=== PATIENT | female | born 1945 | race Caucasian/White ===

== ENCOUNTER 2016-08-05 14:03 | Inpatient (IN) | payer MEDICARE ==
[~2016-08-05] VITALS: Ht 154.9 cm; Wt 61.0 kg
[2016-08-08] MEDS ORDERED: HYDR-3133 PO (09:30)
[2016-08-08] MEDS ORDERED: IMIT50TA PO (09:30)
[2016-08-08] MEDS ORDERED: RIZA10TA2 PO (09:30)
[2016-08-08] MEDS ORDERED: BUTA1CAP PO (09:30)
[2016-08-08] MEDS ORDERED: MELO-1 PO (09:30)
[2016-08-08] MEDS ORDERED: IMIT100T PO (09:30)
[2016-08-08] MEDS ORDERED: DIVA500T3 PO (09:30)
[2016-08-08] MEDS ORDERED: NEXI20CA PO (09:30)
[2016-08-08] MEDS ORDERED: BUPR1TAB70 PO (09:30)
[2016-08-24] MEDS: ROPIVACAINE PERI-ARTICULAR INJECTION. PERIART SCH ×10 (07:45→10:40)
[2016-08-24] MEDS ORDERED: INSULIN HUMAN REGULAR 1,000 UNITS/10 ML VIAL SQ PRN (07:45)
[2016-08-24] MEDS ORDERED: SODIUM CHLORID 0.9% 500 ML IV SCH (07:45)
[2016-08-24] MEDS ORDERED: VANCOMYCIN 1000 MG/NS 250 ML (for <70 kg) IV SCH ×2 (07:45)
[2016-08-24] MEDS ORDERED: DEXAMETHASONE SOD PHOS 20 MG/5 ML VIAL IV SCH (07:45)
[2016-08-24] MEDS: TRANEXAMIC ACID IV SCH ×2 (07:45→10:41)
[2016-08-24] MEDS ORDERED: LACTATED RINGER'S 1000 ML IV SCH (07:45)
[2016-08-24] MEDS ORDERED: ceFAZolin 2 GM PREMIX 50 ML IV SCH (07:45)
[2016-08-24] MEDS: SODIUM CHLORIDE 0.9% IV SCH ×2 (07:45→10:41)
[2016-08-24] MEDS: POVIDONE IODINE 7.5% SCRUB 118 ML BOTTLE TOP SCH (07:45)
[2016-08-24] MEDS ORDERED: METOPROLOL TARTRATE 25 MG TAB PO PRN (07:45)
[2016-08-24] MEDS ORDERED: GENTAMICIN SULFATE 80 MG/2 ML VIAL ONE (07:58)
[2016-08-24 08:10] VITALS: BP 125/70; PULSE 65; RESP 16; TEMP 97.7; O2SAT 100
[2016-08-24] MEDS ORDERED: MIDAZOLAM HCL 5 MG/5 ML VIAL ONE (08:57)
[2016-08-24] MEDS ORDERED: FAMOTIDINE 20 MG/2 ML VIAL ONE (08:57)
[2016-08-24] MEDS: SODIUM CHLOR 0.9% 1000 ML INJ 1,000 ML IV SCH ×2 (11:25→20:02)
--- NOTE | 2016-08-24 11:28 | PD.OP ---
cc: Sridhar Mary MD Operative Report Date of Surgery: Aug 24, 2016 Preoperative Diagnosis: Left knee severe osteoarthritis. Left femoral shaft malunion, chronic. Postoperative Diagnosis: Same Procedure: Left total knee arthroplasty Anesthesia: Adductor canal block and general Surgeon: Sridhar Mary Guard Immigration(s): JACOBO Garcia The surgical procedure was assisted by my Advanced Registered Nurse Practitioner. My MEDICAL RESEARCH SCIENTIST presence was necessary throughout this case for the manipulation and positioning of the surgical extremity. My MEDICAL RESEARCH SCIENTIST was assisting me throughout the duration of this procedure. The skill set of an Advance Registered Nurse Practitioner was medically necessary to complete this procedure. During the surgical case, the certified ophthalmic surgical assistant was working at the back table and the Advance Registered Nurse Practitioner was directly assisting me. Operation and Findings: IMPLANTS: DePuy Attune: Patella: size 32. Femur, posterior stabilized size 5 narrow. Tibia, rotating platform size for. Tibial insert, rotating platform, posterior stabilized size 5 mm thickness. ESTIMATED BLOOD LOSS: 150 cc TOURNIQUET TIME: 36 minutes at 250 mmHg pressure. JUSTIFICATION FOR PROCEDURE: The patient has end-stage osteoarthritis to the knee. There is an attached conservative measures pathway form in the chart that describes the nonoperative measures that were undertaken prior to consideration of surgical management. The patient understood the risks and benefits of surgical management. See my office notes for further details PROCEDURE: The patient was brought back to the operative theatre. Adequate anesthesia was obtained. The patient received intravenous vancomycin and Ancef. The lower extremity was prepped and draped in the usual sterile fashion.The leg was exsanguinated, the tourniquet was raised. A standard anterior incision was performed followed by medial parapatellar arthrotomy was performed. End-stage arthritis was identified. Osteotomy of the patella was performed. We drilled holes for the patella. We trialed the patella component. We placed an intramedullary guide into the distal femur. We ultimately resected 11 mm off of the distal femur in 7 degrees of valgus. We increased the valgus resection due to previous varus malunion of her femur. The remnants of the ACL and PCL were resected. Osteotomy of the proximal tibia was performed, resecting 4 mm off of the medial side. This was done with 3 degrees of posterior slope using an extramedullary guide. The distal end of the guide was placed in the mid aspect of the ankle. The femur was sized, and four chamfer cuts were completed in 3 of external rotation. We then cut the central box in the distal femur to replace the PCL. We resected the remnants of the menisci and removed osteophytes off of the femur and tibia. We then trialed the knee. We punched the tibia for the keel, and then used standard technique to cement in components. Excess cement was removed. We trialed the knee again and the final polyethylene thickness was chosen to provide extension to 0 degrees, and flexion of 140 degrees to gravity. The ligaments were appropriately balanced. Lateral release was not necessary to obtain excellent patellofemoral tracking. The tourniquet was released and adequate hemostasis was obtained. An intra- articular injection of a ropivacaine cocktail was injected. The posterior knee was inspected for excess cement, which was removed. The final polyethylene was put into position after thorough irrigation. We then closed deep fascia with a #2 Stratafix followed by skin with 2-0 Vicryl followed by geovanni. Postop plan is to weight-bear as tolerated. DVT prophylaxis will be performed with SCDamado, KENYON persaud, early mobilization, and Lovenox followed by aspirin. Sridhar Mary MD Aug 24, 2016 11:28
[2016-08-24] MEDS ORDERED: hydrOXYzine HCL 25 MG TAB PO PRN (11:30)
[2016-08-24] MEDS ORDERED: ENOX40P SQ (11:30)
[2016-08-24] MEDS ORDERED: MAGNESIUM HYDROXIDE SUSP 30 ML CUP PO PRN (11:30)
[2016-08-24] MEDS ORDERED: BISACODYL 10 MG SUPP PR PRN (11:30)
[2016-08-24] MEDS ORDERED: MORPHINE SULFATE 4 MG/ML INJ IV PUSH PRN (11:30)
[2016-08-24] MEDS ORDERED: ALUMINUM/MAGNESIUM/SIMETH 30 ML CUP PO PRN (11:30)
[2016-08-24] MEDS ORDERED: SODIUM CHLORIDE 0.9% FLUSH 5 ML FLUSH IVF PRN (11:30)
[2016-08-24] MEDS ORDERED: NORC5TAB PO (11:30)
[2016-08-24] MEDS ORDERED: diphenhydrAMINE HCL 50 MG/ML VIAL IV PRN (11:30)
[2016-08-24] MEDS ORDERED: ZOLPIDEM TARTRATE 5 MG TAB PO PRN (11:30)
[2016-08-24] MEDS ORDERED: NALOXONE HCL 0.4 MG/ML AMP IV PRN (11:30)
[2016-08-24] MEDS ORDERED: ACETAMINOPHEN/HYDROcodone 325 MG/5 MG TAB PO PRN (11:30)
[2016-08-24] MEDS ORDERED: ASPI325T PO (11:30)
[2016-08-24] MEDS ORDERED: SUMAtriptan SUCCINATE 50 MG TAB PO PRN (11:30)
[2016-08-24] MEDS ORDERED: Post-op Orders (for Pharmacy) MISC XX ONE (11:43)
[2016-08-24] MEDS ORDERED: ePHEDrine/NS 25 MG/5 ML SYR IV ONE (11:49)
[2016-08-24] MEDS ORDERED: ONDANSETRON HCL 4 MG/2 ML VIAL IV PUSH ONE (11:49)
[2016-08-24] MEDS ORDERED: PHENYLEPH/NS 1000 MCG/10 ML SYR IV ONE (11:49)
[2016-08-24] MEDS ORDERED: PROPOFOL 200 MG/20 ML AMP IV ONE (11:49)
[2016-08-24] MEDS ORDERED: LACTATED RINGER'S 1000 ML INJ 1,000 ML IV ONE (11:49)
[2016-08-24] MEDS ORDERED: fentaNYL CITRATE 250 MCG/5 ML AMP ONE (11:54)
[2016-08-24] MEDS ORDERED: MORPHINE SULFATE 4 MG/ML INJ ONE (11:55)
[2016-08-24] MEDS ORDERED: BUPIVACAINE LIPOSOME PF 1.3% 20 ML VIAL ONE (11:56)
[2016-08-24] MEDS ORDERED: *morphine SULFATE 8 MG/ML PERIprocedure ONLY ONE ×3 (12:00→13:48)
--- NOTE | 2016-08-24 13:05 | RADRPT ---
EXAM DATE/TIME: 08/24/2016 12:26 [facility] COMPARISON: CHEST PA & LAT, August 08, 2016, 11:51. INDICATIONS : Post left knee arthroplasty. MEDICAL HISTORY : None. SURGICAL HISTORY : None. ENCOUNTER: Initial ACUITY: 1 day PAIN SCORE: Non-responsive. LOCATION: Left knee FINDINGS: The patient is post left knee arthroplasty. Orthopedic hardware is in excellent position. There are s kin geovanni in place. CONCLUSION: Uncomplicated left knee arthroplasty. Gaurav Awan MD on August 24, 2016 at 13:03 Board Certified Radiologist. This report was verified electronically.
[2016-08-24] MEDS ORDERED: SODIUM CHLORIDE 0.9% IV SCH (13:40)
[2016-08-24] MEDS ORDERED: TRANEXAMIC ACID IV SCH (13:40)
[2016-08-24] MEDS ORDERED: *ONDANSETRON 4 MG VIAL PERIprocedural Use ONLY ONE (13:48)
[2016-08-24 17:42] VITALS: BP 119/73; PULSE 75; RESP 14; TEMP 95.4; O2SAT 97
[2016-08-24 19:34] VITALS: BP 134/71; PULSE 69; RESP 16; TEMP 97.2; O2SAT 98
[2016-08-24] MEDS: SODIUM CHLORIDE 0.9% FLUSH 5 ML FLUSH IVF SCH (19:40)
[2016-08-24] MEDS: ONDANSETRON HCL 4 MG/2 ML VIAL IVP PRN (19:41)
[2016-08-24] MEDS: SUMAtriptan SUCCINATE 50 MG TAB PO PRN (19:43)
--- NOTE | 2016-08-24 19:58 | PD.CONS ---
HPI Service [facility] Consult Requested By Dr Mary Primary Care Physician Pieter Aragon M.D. Diagnoses: History of Present Illness This is a 70-year-old female with past medical history for migraine headaches, cellulitis of the right lower extremity due to chronic lymphedema, and also arthritis who presents to [facility] for elective left total knee arthroplasty. 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 The patient states that she has seen in consultation Dr. Mary and after trying multiple conservative interventions which have failed, it was decided to do an elective surgery. The patient denies chest pain, shows of breath, fevers, chills, dysuria, abdominal pain, diarrhea. The patient only admits to having a migraine headache which has been better after she got some Imitrex. Review of Systems Except as stated in HPI: all other systems reviewed are Neg Past Family Social History Allergies: Coded Allergies: Sulfa (Verified Allergy, Mild, Hives, 08/24/16) Uncoded Allergies: FLU SHOT (Allergy, Unknown, Hives, 05/31/03) Past Medical History 1. Migraine headaches. 2. Cellulitis of the right lower extremity 3. 3. Chronic lymphedema of the right lower extremity Past Surgical History 1. Surgery of the right meniscus. 2. Total abdominal hysterectomy with bilateral salpingo-oophorectomy. Reported Medications 1. Fioricet 503 [id number] milligrams by mouth every 4 hours when necessary headache. 2. Lovenox 40 mg subcutaneous daily. 3. Depakote 500 mg by mouth twice a day for migraine headaches. 4. Hydroxyzine 925 mg by mouth 3 times a day as needed for itching. 5. Aspirin 325 mg by mouth daily. 6. Meloxicam 50 mg by mouth daily. 7. Murray 1-2 tablets by mouth every 4 hours when necessary for pain. 8. Nexium 20 mg by mouth daily. 9. Imitrex 100 mg once as needed for migraine headache. Active Ordered Medications Current Medications Medications (Trade) Dose Ordered Sig/Nallely Route Start Time Stop Time Status Last Admin (Betadine 7.5% Scrub) 1 applic ONCE TOP 08/24/16 07:45 08/27/16 07:44 (Wellbutrin Sr 12 Hr) 100 mg Q12HR PO 08/24/16 21:00 08/25/16 08:30 (Depakote Er) 500 mg BID PO 08/24/16 21:00 08/25/16 08:30 (Atarax) 25 mg TID PRN PO 08/24/16 11:30 Pantoprazole Sodium 20 mg 20 mg DAILY PO 08/25/16 09:00 08/25/16 08:30 (NS 1000 ml Inj) 1,000 ml @ 100 mls/hr Q10H IV 08/24/16 11:25 08/24/16 20:02 (NS Flush) 2 ml UNSCH PRN IVF 08/24/16 11:30 (NS Flush) 2 ml BID IVF 08/24/16 21:00 08/25/16 08:31 (Lovenox Inj) 40 mg Q24H SQ 08/25/16 11:00 09/03/16 11:01 08/25/16 11:25 ([place] 5-325 Mg) 1 tab Q4H PRN PO 08/24/16 11:30 08/25/16 05:18 ([place] 5-325 Mg) 2 tab Q4H PRN PO 08/24/16 11:30 08/25/16 12:44 (Theragran M Tab) 1 tab BID PO 08/25/16 21:00 10/24/16 20:59 (Zofran Inj) 4 mg Q6H PRN IVP 08/24/16 11:30 08/25/16 08:35 (Colace) 100 mg BID PO 08/25/16 21:00 (Mag-Al Plus Susp Liq) 30 ml Q6H PRN PO 08/24/16 11:30 (Ambien) 5 mg HS PRN PO 08/24/16 11:30 (Dulcolax Supp) 10 mg DAILY PRN [place] 08/24/16 11:30 (Narcan Inj) 0.4 mg UNSCH PRN IV 08/24/16 11:30 (Benadryl Inj) 25 mg Q6H PRN IV 08/24/16 11:30 (Morphine Inj) 2 mg Q3H PRN IV PUSH 08/24/16 11:30 (Milk Of Magnesia Liq) 30 ml BID PO 08/25/16 10:00 08/25/16 11:25 (Senokot) 17.2 mg HS PO 08/25/16 21:00 Family History Mother from breast cancer and pancreatic. Social History Patient denies smoking currently. She is a former smoker quit in her 30s. Admits to rare alcohol drinking. The patient is initially and then had a sentimental partner for several years which is now. The patient has 1 daughter and 2 sons. Physical Exam Vital Signs Vital Signs Date Time Temp Pulse Resp B/P Pulse Ox O2 Delivery O2 Flow Rate FiO2 08/24/16 19:34 97.2 69 16 134/71 98 08/24/16 17:42 95.4 75 14 119/73 97 08/24/16 15:00 97.5 83 15 108/64 99 Nasal Cannula 2 08/24/16 13:30 97.9 81 16 128/73 99 Nasal Cannula 2 08/24/16 13:15 78 20 129/79 98 Nasal Cannula 2 08/24/16 13:00 78 20 129/79 98 Nasal Cannula 2 08/24/16 12:45 81 20 136/73 98 Nasal Cannula 2 08/24/16 12:30 84 20 135/79 98 Nasal Cannula 2 08/24/16 12:15 86 20 139/80 97 Nasal Cannula 2 08/24/16 12:00 104 20 143/83 98 Nasal Cannula 2 08/24/16 11:50 98.7 93 20 130/74 98 Nasal Cannula 2 08/24/16 08:10 97.7 65 16 125/70 100 Physical Exam GENERAL: This is a well-nourished, well-developed patient, in no apparent distress. SKIN: No rashes, ecchymoses or lesions. Cool and dry. HEAD: Atraumatic. Normocephalic. No temporal or scalp tenderness. EYES: Pupils equal round and reactive. Extraocular motions intact. No scleral icterus. No injection or drainage. ENT: Nose without bleeding, purulent drainage or septal hematoma. Throat without erythema, tonsillar hypertrophy or exudate. Uvula midline. Airway patent. NECK: Trachea midline. No JVD or lymphadenopathy. Supple, nontender, no meningeal signs. CARDIOVASCULAR: Regular rate and rhythm without murmurs, gallops, or rubs. RESPIRATORY: Clear to auscultation. Breath sounds equal bilaterally. No wheezes , rales, or rhonchi. GASTROINTESTINAL: Abdomen soft, non-tender, nondistended. No hepato-splenomegaly , or palpable masses. No guarding. MUSCULOSKELETAL: Extremities without clubbing, cyanosis, or edema. There is tenderness to palpation of the left knee area range of motion is limited by pain. No calf tenderness. Negative Homans sign bilaterally. NEUROLOGICAL: Awake and alert. Cranial nerves II through XII intact. Motor and sensory grossly within normal limits. Five out of 5 muscle strength in all muscle groups. Normal speech. Laboratory Laboratory Tests Test 08/24/16 08/24/16 08/24/16 08:26 09:42 09:44 Blood Type A POSITIVE A POSITIVE Antibody Screen POSITIVE Antigen Identification E Antigen - NEGATIVE Crossmatch Leukocyte-Reduced Red Blood Cells Blood Bank Comment Antibody Identification Anti-E Imaging Last Impressions Knee X-Ray 08/24/16 1125 Signed Impressions: Service Date/Time: Wednesday, August 24, 2016 12:26 - CONCLUSION: Uncomplicated left knee arthroplasty. Gaurav Awan MD Assessment and Plan Problem List: (1) Primary localized osteoarthrosis, lower leg ICD Code: M17.10 Status: Acute Plan: Status post knee replacement. Management as per orthopedic surgery. Hold aspirin (2) Status post total knee replacement, left ICD Code: Z96.652 Status: Acute Plan: As above. (3) Migraine headache ICD Code: G43.909 Status: Acute Plan: Patient is a minor headache for which he has taken 1 dose of Imitrex. The patient may take a second dose of Imitrex after 2 hours of initial dose is headache is persistent. This was discussed with RN. Continue Depakote, bupropion, Imitrex. Assessment and Plan DVT prophylaxis: SCDs, KENYON stockings, chemoprophylaxis as per orthopedic surgery. Code Status Full code Discussed Condition With Patient, RN Problem Qualifiers (1) Primary localized osteoarthrosis, lower leg: Qualified Code: M17.12 - Primary localized osteoarthrosis, lower leg, left (2) Migraine headache: Sergio Mooney MD Aug 24, 2016 19:58
[2016-08-24] MEDS: buPROPion HCL 100 MG SUSTAINED RELEASE TAB PO SCH (20:03)
[2016-08-24] MEDS: DIVALPROEX SODIUM E.R. 500 MG TAB PO SCH (20:03)
--- NOTE | 2016-08-24 21:06 | HHI.DCPOC ---
Discharge Care Plan Diagnosis: (1) Primary localized osteoarthrosis, lower leg (2) Status post total knee replacement, left Your Health Problems Are: Difficulty with ADL Goals to Promote Your Health * To prevent worsening of your condition and complications * To maintain your health at the optimal level Directions to Meet Your Goals Take your medications as prescribed Follow your dietary instruction Follow activity as directed Keep your appointments as scheduled Take your immunizations and boosters as scheduled If your symptoms worsen call your PCP, if no PCP go to Urgent Care Center or Emergency Room Smoking is Dangerous to Your Health. Avoid second hand smoke Call the 24-hour hour crisis hotline for domestic abuse at Gaurav Willard Aug 24, 2016 21:06
--- NOTE | 2016-08-24 21:07 | HHI.FF ---
Face to Face Verification Diagnosis: (1) Primary localized osteoarthrosis, lower leg (2) Status post total knee replacement, left Physical Therapy Gait training, Transfer training, bed to chair Knee: Total knee Left LE Weight Bearing: WB as tolerated Left LE Range of Motion: Active ROM Nursing Nursing: Bette teaching, Dressing changes Dressing Changes: Daily dressing change I have seen patient Kristie Xie on 08/24/16. My clinical findings support the need for the requested home health care services because: Limited ability to care for self High risk of falls I certify that my clinical findings support that this patient is homebound because: Post-op weakness Unsteady gait/balance Gaurav Willard Aug 24, 2016 21:07
[2016-08-24] MEDS ORDERED: COMMODE 3-IN-11 MIS (21:10)
[2016-08-24] MEDS ORDERED: WALKER WHEELS/F1 MIS (21:10)
[2016-08-24] MEDS ORDERED: CPMMACHINE (21:10)
[2016-08-24 23:20] VITALS: BP 105/55; PULSE 68; RESP 16; TEMP 96.5; O2SAT 96
[2016-08-25 04:00] VITALS: BP 118/63; PULSE 74; RESP 16; TEMP 96.5; O2SAT 97
[2016-08-25 06:59] LABS: HEMATOCRIT 30.2 % (35.0-46.0); MEAN CELL VOLUME 92.4 FL (80.0-100.0); MEAN CORPUSCULAR HEMOGLOBIN 31.3 PG (27.0-34.0); MEAN CORPUSCULAR HGB CONC 33.9 % (32.0-36.0); PLATELET COUNT 173 TH/MM3 (150-450); RED BLOOD COUNT 3.27 MIL/MM3 (4.00-5.30); RED CELL DISTRIBUTION WIDTH 13.8 % (11.6-17.2); REVIEW FLAG FINAL; WHITE BLOOD COUNT 8.2 TH/MM3 (4.0-11.0)
[2016-08-25] MEDS: SODIUM CHLOR 0.9% 1000 ML INJ 1,000 ML IV SCH ×2 (07:25→17:25)
[2016-08-25] MEDS ORDERED: DEXAMETHASONE SOD PHOS 20 MG/5 ML VIAL IV ONE (07:45)
[2016-08-25] MEDS: POVIDONE IODINE 7.5% SCRUB 118 ML BOTTLE TOP SCH (07:45)
[2016-08-25 08:00] VITALS: BP 113/62; PULSE 80; RESP 18; TEMP 96.8; O2SAT 99
[2016-08-25] MEDS: PANTOPRAZOLE SOD 20 MG DELAYED RELEASE TAB PO SCH (08:30)
[2016-08-25] MEDS: DIVALPROEX SODIUM E.R. 500 MG TAB PO SCH ×2 (08:30→20:42)
[2016-08-25] MEDS: ACETAMINOPHEN/HYDROcodone 325 MG/5 MG TAB PO PRN ×4 (08:30→20:47)
[2016-08-25] MEDS: buPROPion HCL 100 MG SUSTAINED RELEASE TAB PO SCH ×2 (08:30→20:42)
[2016-08-25] MEDS: SODIUM CHLORIDE 0.9% FLUSH 5 ML FLUSH IVF SCH ×2 (08:31→20:43)
[2016-08-25] MEDS: ONDANSETRON HCL 4 MG/2 ML VIAL IVP PRN (08:35)
[2016-08-25] MEDS: ENOXAPARIN SODIUM 40 MG/0.4 ML SYRINGE SQ SCH (11:25)
[2016-08-25] MEDS: MAGNESIUM HYDROXIDE SUSP 30 ML CUP PO SCH ×2 (11:25→20:42)
[2016-08-25 11:40] VITALS: BP 141/72; PULSE 74; RESP 18; TEMP 97.1; O2SAT 99
--- NOTE | 2016-08-25 12:03 | RADRPT ---
EXAM DATE/TIME: 08/25/2016 10:54 [facility] COMPARISON: No previous studies available for comparison. INDICATIONS : Left calf/knee pain and swelling. MEDICAL HISTORY : Gastroesophageal reflux disease. Migraines. Hiatal hernia. Arthritis. Cervical cancer. Lymph neal ma, bilateral lower extremities. SURGICAL HISTORY : Hysterectomy. Bilateral miniscus repair. Left knee surgery. ENCOUNTER: Subsequent ACUITY: 1 day PAIN SCORE: 5/10 LOCATION: Left leg. TECHNIQUE: Venous ultrasound of the leg was performed from the inguinal ligament to the proximal calf. Real-jeanmarie e, color Doppler and spectral tracing, compression and augmentation techniques were used. FINDINGS: There is normal compressibility of the deep venous system from the inguinal region to the proximal ca lf. No echogenic clot is seen in the lumen of the common femoral, femoral, popliteal, and posterior tibial veins. There is a normal response of the venous system to proximal and distal augmentation an d respiration. CONCLUSION: Normal examination. Peyman Dick MD on August 25, 2016 at 12:01 Board Certified Radiologist. This report was verified electronically.
--- NOTE | 2016-08-25 13:11 | PD.ORT.PN ---
Subjective Post Op Day #: 1 Subjective Remarks Patient is OOB in chair. Moderate pain to the left calf. US ordered and results were negative. Patient requesting another night in the hospital before being discharged. Objective Vitals Vital Signs Date Time Temp Pulse Resp B/P Pulse Ox O2 Delivery O2 Flow Rate FiO2 08/25/16 11:40 97.1 74 18 141/72 99 08/25/16 08:00 96.8 80 18 113/62 99 08/25/16 06:01 18 08/25/16 04:00 96.5 74 16 118/63 97 08/24/16 23:20 96.5 68 16 105/55 96 08/24/16 21:01 18 08/24/16 19:34 97.2 69 16 134/71 98 08/24/16 17:42 95.4 75 14 119/73 97 08/24/16 15:00 97.5 83 15 108/64 99 Nasal Cannula 2 08/24/16 13:30 97.9 81 16 128/73 99 Nasal Cannula 2 08/24/16 13:15 78 20 129/79 98 Nasal Cannula 2 08/24/16 13:00 78 20 129/79 98 Nasal Cannula 2 I/O 08/24/16 08/24/16 08/24/16 08/25/16 08/25/16 08/25/16 07:00 15:00 23:00 07:00 15:00 23:00 Intake Total 1750 ml 600 ml 1230 ml Output Total 500 ml 100 ml 225 ml Balance 1250 ml 500 ml 1005 ml Intake Oral 150 ml 480 ml IV Total 600 ml 750 ml Other 1600 ml Output Urine Total 400 ml 100 ml 225 ml Estimated Blood Loss 100 ml # Bowel Movements 0 Result Diagram: 08/25/16 0617 Imaging Last 24 hours Impressions Lower Extremity Ultrasound 08/25/16 0000 Signed Impressions: Service Date/Time: August 10:54 - CONCLUSION: Normal examination. Peyman Dick MD Procedures Left TKA Objective Remarks The patient's dressings were changed today with scant serosanguineous drainage. Incisions are well approximated with surgical clips intact. No redness or s/ s of infection. EHL/TA/G intact. 2+ pedal pulse. + calf swelling or tenderness (US negative for DVT). Mild to moderate lower extremity swelling. + SILT. Assessment & Plan Ortho Post Op Day #: 1 Problem List: Assessment and Plan POD #1: Left TKA 1. WBAT LLE 2. Lovenox for DVT prophylaxis 3. Ice to the left knee PRN 4. Anticipatory discharge home with home health on Monday. Gaurav Willard Aug 25, 2016 13:11
--- NOTE | 2016-08-25 15:21 | HHI.PR ---
Subjective Remarks c/o left calf pain and pain behind knee deies fevers/chills denies cp/sob stable vital signs states had episode of dizziness during class Objective Vitals Vital Signs Date Time Temp Pulse Resp B/P Pulse Ox O2 Delivery O2 Flow Rate FiO2 08/25/16 11:40 97.1 74 18 141/72 99 08/25/16 08:00 96.8 80 18 113/62 99 08/25/16 06:01 18 08/25/16 04:00 96.5 74 16 118/63 97 08/24/16 23:20 96.5 68 16 105/55 96 08/24/16 21:01 18 08/24/16 19:34 97.2 69 16 134/71 98 08/24/16 17:42 95.4 75 14 119/73 97 I/O 08/24/16 08/24/16 08/24/16 08/25/16 08/25/16 08/25/16 07:00 15:00 23:00 07:00 15:00 23:00 Intake Total 1750 ml 600 ml 1230 ml Output Total 500 ml 100 ml 225 ml Balance 1250 ml 500 ml 1005 ml Intake Oral 150 ml 480 ml IV Total 600 ml 750 ml Other 1600 ml Output Urine Total 400 ml 100 ml 225 ml Estimated Blood Loss 100 ml # Bowel Movements 0 Result Diagram: 08/25/16 0617 Imaging Last Impressions Lower Extremity Ultrasound 08/25/16 0000 Signed Impressions: Service Date/Time: August 10:54 - CONCLUSION: Normal examination. Peyman Dick MD Knee X-Ray 08/24/16 1125 Signed Impressions: Service Date/Time: Wednesday, August 24, 2016 12:26 - CONCLUSION: Uncomplicated left knee arthroplasty. Gaurav Awan MD Objective Remarks GENERAL: This is a well-nourished, well-developed patient, in no apparent distress. SKIN: No rashes, ecchymoses or lesions. Cool and dry. HEAD: Atraumatic. Normocephalic. No temporal or scalp tenderness. EYES: Pupils equal round and reactive. Extraocular motions intact. No scleral icterus. No injection or drainage. ENT: Nose without bleeding, purulent drainage or septal hematoma. Throat without erythema, tonsillar hypertrophy or exudate. Uvula midline. Airway patent. NECK: Trachea midline. No JVD or lymphadenopathy. Supple, nontender, no meningeal signs. CARDIOVASCULAR: Regular rate and rhythm without murmurs, gallops, or rubs. RESPIRATORY: Clear to auscultation. Breath sounds equal bilaterally. No wheezes , rales, or rhonchi. GASTROINTESTINAL: Abdomen soft, non-tender, nondistended. No hepato-splenomegaly , or palpable masses. No guarding. MUSCULOSKELETAL: Extremities without clubbing, cyanosis, or edema. There is tenderness to palpation of the left knee area range of motion is limited by pain .(+) left cald tenderness. NEUROLOGICAL: Awake and alert. Cranial nerves II through XII intact. Motor and sensory grossly within normal limits. Five out of 5 muscle strength in all muscle groups. Normal speech. Procedures sp Left total knee arthroplasty Medications and IVs Current Medications Medications (Trade) Dose Ordered Sig/Nallely Route Start Time Stop Time Status Last Admin (Betadine 7.5% Scrub) 1 applic ONCE TOP 08/24/16 07:45 08/27/16 07:44 (Wellbutrin Sr 12 Hr) 100 mg Q12HR PO 08/24/16 21:00 08/25/16 08:30 (Depakote Er) 500 mg BID PO 08/24/16 21:00 08/25/16 08:30 (Atarax) 25 mg TID PRN PO 08/24/16 11:30 Pantoprazole Sodium 20 mg 20 mg DAILY PO 08/25/16 09:00 08/25/16 08:30 (NS 1000 ml Inj) 1,000 ml @ 100 mls/hr Q10H IV 08/24/16 11:25 08/24/16 20:02 (NS Flush) 2 ml UNSCH PRN IVF 08/24/16 11:30 (NS Flush) 2 ml BID IVF 08/24/16 21:00 08/25/16 08:31 (Lovenox Inj) 40 mg Q24H SQ 08/25/16 11:00 09/03/16 11:01 08/25/16 11:25 ([place] 5-325 Mg) 1 tab Q4H PRN PO 08/24/16 11:30 08/25/16 05:18 ([place] 5-325 Mg) 2 tab Q4H PRN PO 08/24/16 11:30 08/25/16 12:44 (Theragran M Tab) 1 tab BID PO 08/25/16 21:00 10/24/16 20:59 (Zofran Inj) 4 mg Q6H PRN IVP 08/24/16 11:30 08/25/16 08:35 (Colace) 100 mg BID PO 08/25/16 21:00 (Mag-Al Plus Susp Liq) 30 ml Q6H PRN PO 08/24/16 11:30 (Ambien) 5 mg HS PRN PO 08/24/16 11:30 (Dulcolax Supp) 10 mg DAILY PRN [place] 08/24/16 11:30 (Narcan Inj) 0.4 mg UNSCH PRN IV 08/24/16 11:30 (Benadryl Inj) 25 mg Q6H PRN IV 08/24/16 11:30 (Morphine Inj) 2 mg Q3H PRN IV PUSH 08/24/16 11:30 (Milk Of Magnesia Liq) 30 ml BID PO 08/25/16 10:00 08/25/16 11:25 (Senokot) 17.2 mg HS PO 08/25/16 21:00 Urinary Catheter: No Vascular Central Line Catheter: No A/P Problem List: (1) Primary localized osteoarthrosis, lower leg ICD Code: M17.10 Status: Acute Plan: Status post knee replacement. Management as per orthopedic surgery. Continue Hold aspirin Pain control as per orthopedic surgery Patient on Senna and colace for bowel regime. (2) Status post total knee replacement, left ICD Code: Z96.652 Status: Acute Plan: As above. (3) Migraine headache ICD Code: G43.909 Status: Acute Plan: Patient is a minor headache for which he has taken 1 dose of Imitrex. The patient may take a second dose of Imitrex after 2 hours of initial dose is headache is persistent. This was discussed with RN. Continue Depakote, bupropion, Imitrex. Stable - mo nigraine currently (4) Pain of left calf ICD Code: M79.662 Status: Acute Plan: Doppler us negative for DVT. Likely postsurgical due to inflammation. Problem Qualifiers (1) Primary localized osteoarthrosis, lower leg: Qualified Code: M17.12 - Primary localized osteoarthrosis, lower leg, left (2) Migraine headache: Sergio Mooney MD Aug 25, 2016 15:21
[2016-08-25 15:50] VITALS: BP 107/75; PULSE 83; RESP 23; TEMP 98.9; O2SAT 98
[2016-08-25 20:00] VITALS: BP 125/66; PULSE 77; RESP 23; TEMP 97.5; O2SAT 99
[2016-08-25] MEDS: MULTIVITAMINS/MINERALS THERAPEUTIC TAB PO SCH (20:42)
[2016-08-25] MEDS: DOCUSATE SODIUM 100 MG CAP PO SCH (20:42)
[2016-08-25] MEDS ORDERED: SENNOSIDES 8.6 MG TAB PO SCH (21:00)
[2016-08-26 00:35] VITALS: BP 109/62; PULSE 69; RESP 16; TEMP 97.2; O2SAT 97
[2016-08-26] MEDS: ACETAMINOPHEN/HYDROcodone 325 MG/5 MG TAB PO PRN ×3 (00:46→12:51)
[2016-08-26] MEDS: SODIUM CHLOR 0.9% 1000 ML INJ 1,000 ML IV SCH ×2 (03:25→13:25)
[2016-08-26 07:02] LABS: HEMATOCRIT 28.6 % (35.0-46.0); MEAN CELL VOLUME 91.9 FL (80.0-100.0); MEAN CORPUSCULAR HEMOGLOBIN 31.5 PG (27.0-34.0); MEAN CORPUSCULAR HGB CONC 34.2 % (32.0-36.0); PLATELET COUNT 169 TH/MM3 (150-450); RED BLOOD COUNT 3.11 MIL/MM3 (4.00-5.30); RED CELL DISTRIBUTION WIDTH 13.6 % (11.6-17.2); REVIEW FLAG FINAL; WHITE BLOOD COUNT 8.3 TH/MM3 (4.0-11.0)
[2016-08-26] MEDS: POVIDONE IODINE 7.5% SCRUB 118 ML BOTTLE TOP SCH (07:12)
[2016-08-26 07:20] LABS: BICARBONATE 30.7 MEQ/L (21.0-32.0); POTASSIUM 3.7 MEQ/L (3.5-5.1)
[2016-08-26] MEDS: MULTIVITAMINS/MINERALS THERAPEUTIC TAB PO SCH (07:42)
[2016-08-26] MEDS: buPROPion HCL 100 MG SUSTAINED RELEASE TAB PO SCH (07:42)
[2016-08-26] MEDS: SUMAtriptan SUCCINATE 50 MG TAB PO PRN (07:42)
[2016-08-26] MEDS: DIVALPROEX SODIUM E.R. 500 MG TAB PO SCH (07:42)
[2016-08-26] MEDS: MAGNESIUM HYDROXIDE SUSP 30 ML CUP PO SCH (07:42)
[2016-08-26] MEDS: DOCUSATE SODIUM 100 MG CAP PO SCH (07:42)
[2016-08-26] MEDS: PANTOPRAZOLE SOD 20 MG DELAYED RELEASE TAB PO SCH (07:42)
[2016-08-26 07:52] VITALS: BP 100/59; PULSE 76; RESP 18; TEMP 96.6; O2SAT 96
[2016-08-26] MEDS: SODIUM CHLORIDE 0.9% FLUSH 5 ML FLUSH IVF SCH (07:52)
[2016-08-26] MEDS: ENOXAPARIN SODIUM 40 MG/0.4 ML SYRINGE SQ SCH (10:05)
[2016-08-26 10:07] VITALS: O2SAT 95
[2016-08-26] MEDS: ONDANSETRON HCL 4 MG/2 ML VIAL IVP PRN (11:28)
[2016-08-26 13:05] VITALS: BP 104/62; PULSE 83; RESP 18; TEMP 97.1; O2SAT 100
[2016-08-26] MEDS ORDERED: SODIUM CHLORID 0.9% 500 ML INJ 500 ML IV ONE (13:45)
--- NOTE | 2016-08-26 13:54 | HHI.PR ---
Subjective Remarks She states that she had an episode of dizziness and low blood pressure with systolic blood pressure in the 70s when she stood up earlier today. denies cp/sob denies fevers/chills denies cough Objective Vitals Vital Signs Date Time Temp Pulse Resp B/P Pulse Ox O2 Delivery O2 Flow Rate FiO2 08/26/16 13:05 97.1 83 18 104/62 100 08/26/16 10:07 95 21 08/26/16 07:52 96.6 76 18 100/59 96 08/26/16 00:35 97.2 69 16 109/62 97 08/25/16 20:00 97.5 77 23 125/66 99 08/25/16 15:50 98.9 83 23 107/75 98 I/O 08/25/16 08/25/16 08/25/16 08/26/16 08/26/16 08/26/16 07:00 15:00 23:00 07:00 15:00 23:00 Intake Total 1230 ml 1080 ml 240 ml Output Total 225 ml Balance 1005 ml 1080 ml 240 ml Intake Oral 480 ml 1080 ml 240 ml IV Total 750 ml Output Urine Total 225 ml # Voids 5 1 # Bowel Movements 0 0 0 Result Diagram: 08/26/16 0549 08/26/16 0549 Imaging Last Impressions Lower Extremity Ultrasound 08/25/16 0000 Signed Impressions: Service Date/Time: August 10:54 - CONCLUSION: Normal examination. Peyman Dick MD Knee X-Ray 08/24/16 1125 Signed Impressions: Service Date/Time: Wednesday, August 24, 2016 12:26 - CONCLUSION: Uncomplicated left knee arthroplasty. Gaurav Awan MD Objective Remarks GENERAL: This is a well-nourished, well-developed patient, in no apparent distress. SKIN: No rashes, ecchymoses or lesions. Cool and dry. HEAD: Atraumatic. Normocephalic. No temporal or scalp tenderness. EYES: Pupils equal round and reactive. Extraocular motions intact. No scleral icterus. No injection or drainage. ENT: Nose without bleeding, purulent drainage or septal hematoma. Throat without erythema, tonsillar hypertrophy or exudate. Uvula midline. Airway patent. NECK: Trachea midline. No JVD or lymphadenopathy. Supple, nontender, no meningeal signs. CARDIOVASCULAR: Regular rate and rhythm without murmurs, gallops, or rubs. RESPIRATORY: Clear to auscultation. Breath sounds equal bilaterally. No wheezes , rales, or rhonchi. GASTROINTESTINAL: Abdomen soft, non-tender, nondistended. No hepato-splenomegaly , or palpable masses. No guarding. MUSCULOSKELETAL: Extremities without clubbing, cyanosis, or edema. There is tenderness to palpation of the left knee area range of motion is limited by pain .(+) left cald tenderness. NEUROLOGICAL: Awake and alert. Cranial nerves II through XII intact. Motor and sensory grossly within normal limits. Five out of 5 muscle strength in all muscle groups. Normal speech. Procedures sp Left total knee arthroplasty Medications and IVs Current Medications Medications (Trade) Dose Ordered Sig/Nallely Route Start Time Stop Time Status Last Admin (Betadine 7.5% Scrub) 1 applic ONCE TOP 08/24/16 07:45 08/27/16 07:44 (Wellbutrin Sr 12 Hr) 100 mg Q12HR PO 08/24/16 21:00 08/26/16 07:42 (Depakote Er) 500 mg BID PO 08/24/16 21:00 08/26/16 07:42 (Atarax) 25 mg TID PRN PO 08/24/16 11:30 Pantoprazole Sodium 20 mg 20 mg DAILY PO 08/25/16 09:00 08/26/16 07:42 (NS 1000 ml Inj) 1,000 ml @ 100 mls/hr Q10H IV 08/24/16 11:25 08/24/16 20:02 (NS Flush) 2 ml UNSCH PRN IVF 08/24/16 11:30 (NS Flush) 2 ml BID IVF 08/24/16 21:00 08/26/16 07:52 (Lovenox Inj) 40 mg Q24H SQ 08/25/16 11:00 09/03/16 11:01 08/26/16 10:05 ([place] 5-325 Mg) 1 tab Q4H PRN PO 08/24/16 11:30 08/25/16 05:18 ([place] 5-325 Mg) 2 tab Q4H PRN PO 08/24/16 11:30 08/26/16 12:51 (Theragran M Tab) 1 tab BID PO 08/25/16 21:00 10/24/16 20:59 08/26/16 07:42 (Zofran Inj) 4 mg Q6H PRN IVP 08/24/16 11:30 08/26/16 11:28 (Colace) 100 mg BID PO 08/25/16 21:00 08/26/16 07:42 (Mag-Al Plus Susp Liq) 30 ml Q6H PRN PO 08/24/16 11:30 08/26/16 00:54 (Ambien) 5 mg HS PRN PO 08/24/16 11:30 08/26/16 00:57 (Dulcolax Supp) 10 mg DAILY PRN ME 08/24/16 11:30 (Narcan Inj) 0.4 mg UNSCH PRN IV 08/24/16 11:30 (Benadryl Inj) 25 mg Q6H PRN IV 08/24/16 11:30 (Morphine Inj) 2 mg Q3H PRN IV PUSH 08/24/16 11:30 (Milk Of Magnesia Liq) 30 ml BID PO 08/25/16 10:00 08/26/16 07:42 (Senokot) 17.2 mg HS PO 08/25/16 21:00 08/25/16 20:42 Urinary Catheter: No Vascular Central Line Catheter: No A/P Problem List: (1) Primary localized osteoarthrosis, lower leg ICD Code: M17.10 Status: Acute Plan: Status post knee replacement. Management as per orthopedic surgery. Continue Hold aspirin Pain control as per orthopedic surgery Patient on Senna and colace for bowel regime. (2) Status post total knee replacement, left ICD Code: Z96.652 Status: Acute Plan: As above. (3) Migraine headache ICD Code: G43.909 Status: Acute Plan: Patient is a minor headache for which he has taken 1 dose of Imitrex. The patient may take a second dose of Imitrex after 2 hours of initial dose is headache is persistent. This was discussed with RN. Continue Depakote, bupropion, Imitrex. Stable - mo nigraine currently (4) Pain of left calf ICD Code: M79.662 Status: Acute Plan: Doppler us negative for DVT. Likely postsurgical due to inflammation. (5) Hypotension ICD Code: I95.9 Status: Acute Plan: likely orthostatic hypotension. check orthostatic BP, will also give 500 ml IV bolus. Patient may be discharged if no orthostasis. (6) Nausea ICD Code: R11.0 Status: Acute Plan: Patient feels very nauseous, this could be 2/2 opiate pain medications. On zofran as needed. Will dc norco - Will try tylenol and toradol for pain Assessment and Plan DVT prophylaxis: Lovenox SQ GI prophylaxis: PPI Discharge Planning If no orthostatic hypotension, bp stable. Patient may be discharged Problem Qualifiers (1) Primary localized osteoarthrosis, lower leg: Qualified Code: M17.12 - Primary localized osteoarthrosis, lower leg, left (2) Migraine headache: Sergio Mooney MD Aug 26, 2016 13:54
[2016-08-26] MEDS ORDERED: ACETAMINOPHEN 325 MG TAB PO PRN (14:00)
[2016-08-26] MEDS ORDERED: KETOROLAC TROMETHAMINE 10 MG TAB PO PRN (14:00)
--- NOTE | 2016-08-26 15:38 | PD.ORT.PN ---
Subjective Subjective Remarks doing well, except some calf pain (stable, and slightly better than yesterday) Objective Vitals Vital Signs Date Time Temp Pulse Resp B/P Pulse Ox O2 Delivery O2 Flow Rate FiO2 08/26/16 13:05 97.1 83 18 104/62 100 08/26/16 10:07 95 21 08/26/16 07:52 96.6 76 18 100/59 96 08/26/16 00:35 97.2 69 16 109/62 97 08/25/16 20:00 97.5 77 23 125/66 99 08/25/16 15:50 98.9 83 23 107/75 98 I/O 08/25/16 08/25/16 08/25/16 08/26/16 08/26/16 08/26/16 07:00 15:00 23:00 07:00 15:00 23:00 Intake Total 1230 ml 1080 ml 240 ml Output Total 225 ml Balance 1005 ml 1080 ml 240 ml Intake Oral 480 ml 1080 ml 240 ml IV Total 750 ml Output Urine Total 225 ml # Voids 5 1 # Bowel Movements 0 0 0 Result Diagram: 08/26/16 0549 08/26/16 0549 Imaging Last 24 hours Impressions Lower Extremity Ultrasound 08/25/16 0000 Signed Impressions: Service Date/Time: August 10:54 - CONCLUSION: Normal examination. Peyman Dick MD Procedures Left TKA Objective Remarks The patient's dressings were changed again today with scant serosanguineous drainage. Incisions are well approximated with surgical clips intact. No redness or s/s of infection. + calf swelling or tenderness (US negative for DVT). Mild to moderate lower extremity swelling. Assessment & Plan Assessment and Plan POD #2: Left TKA 1. WBAT LLE 2. Lovenox for DVT prophylaxis 3. Ice to the left knee PRN 4. Anticipatory discharge home today. Sridhar Mary MD Aug 26, 2016 15:38
[2016-08-26] MEDS ORDERED: ZOFR4TAB PO (15:39)
[2016-08-26 16:22] VITALS: BP 107/61
--- NOTE | 2016-08-29 17:24 | HHI.DS ---
Discharge Summary Admission Date Aug 24, 2016 at 07:06 Discharge Date: Aug 26, 2016 Admitting Diagnosis Primary localized OA, lower leg Status post total knee replacement, left Diagnosis: (1) Primary localized osteoarthrosis, lower leg Diagnosis: Principal (2) Status post total knee replacement, left Diagnosis: Principal Procedures Left TKA Brief History This is a 70 year old female patient with severe OA of the left knee CBC/BMP: 08/26/16 0549 08/26/16 0549 PE at Discharge The patient's dressings were changed again today with scant serosanguineous drainage. Incisions are well approximated with surgical clips intact. No redness or s/s of infection. + calf swelling or tenderness (US negative for DVT). Mild to moderate lower extremity swelling. Hospital Course The patient was admitted to the hospital for severe OA of the left knee to have a left TKA. The patient's surgery went well with no complications. The patient had a normal hospital stay and was discharged home with home health. The patient is WBAT on the LLE. The patient's incision is well approximated with surgical clips intact. The patient will f/u with Dr. Mary in 10 days in the office. Pt Condition on Discharge: Stable Discharge Disposition: Disch w/ Home Health Serv Discharge Instructions Diet Instructions: As Tolerated, No Restrictions Activities You Can Perform: Weight Bearing as Marco Activities to Avoid: Strenuous Activity Follow up Referrals: Orthopedics with Sridhar Mary MD New Medications: Aspirin (Aspirin) 325 Mg Tab 325 MG PO DAILY Start Aspirin after Lovenox is completed. Prevent Blood Clot # 30 Ref 0 TAB Commode 3-in-1 (Commode 3-in-1) 1 Mis Mis 1 EA .ROUTE DIRECTED #1 Ref 0 EA CPM-Continuous Passive Motion Machine (CPM-Continuous Passive Motion Machine) 1 Ea Device 1 EA .ROUTE DIRECTED #1 Ref 0 EA Enoxaparin Inj (Lovenox Inj) 40 Mg/0.4 Ml Syr 40 MG SQ DAILY Start Aspirin after Lovenox is completed. Blood Clot Prevention # 10 Ref 0 SYRINGE Hydrocodone-Acetaminophen ([place]) 5-325 mg Tab 1-2 TAB PO Q4H PRN PAIN #60 Ref 0 TAB Ondansetron (Zofran) 4 Mg Tab 4 MG PO Q6HR PRN NAUSEA OR VOMITING #40 Ref 0 TAB Walker with Front Wheels (Walker with Front Wheels) 1 Mis Mis 1 EA .ROUTE DIRECTED #1 Ref 0 EA Continued Medications: Bupropion HCl ER 12 HR (Bupropion HCl ER 12 HR) 100 Mg Tab 100 MG PO Q12HR Control Depression Ref 0 TAB Fbuaseaoww-Yczqiczgdsvcl-Rdwnmycc (Fioricet) 50-300-40 Mg Cap 1 CAP PO Q4H PRN HEADACHE Ref 0 CAP Divalproex ER (Divalproex ER) 500 Mg Tab 500 MG PO BID Migraines #30 [address] (Nexium) 20 Mg Capdr 20 MG PO DAILY Ref 0 CAP Hydroxyzine HCl (Hydroxyzine HCl) 25 Mg Tab 25 MG PO TID PRN ITCHING Ref 0 TAB Rizatriptan (Rizatriptan) 10 Mg Tab MG PO DAILY Sumatriptan (Imitrex) 100 Mg Tab 100 MG PO ONCE If a satisfactory response has not been obtained at 2 hours, a second dose may be administered PRN MIGRAINE HEADACHE Ref 0 TAB Sumatriptan (Imitrex) 50 Mg Tab 50 MG PO ONCE If a satisfactory response has not been obtained at 2 hours, a second dose may be administered PRN MIGRAINE HEADACHE Ref 0 TAB Discontinued Medications: Meloxicam (Meloxicam) 15 Mg Tab 15 MG PO DAILY Arthritis Pain #30 Ref 0 TAB Gaurav Willard Aug 29, 2016 17:24
== END 2016-08-26 16:33 | disposition home health service (06) | DRG 470 ==
LOC: HSDI 08-24 07:06 → N06A 08-24 16:46
PROVIDERS: ADMIT Orthopaedic Surgery; ATTEND Orthopaedic Surgery
PROC: 0SRD0J9 Replacement of Left Knee Joint with Synthetic Substitute, Cemented, Open Approach (ICD-10-PCS; principal; 2016-08-24 09:36)
DX: M17.12 Unilateral primary osteoarthritis, left knee (principal); L03.115 Cellulitis of right lower limb; G43.909 Migraine, unspecified, not intractable, without status migrainosus; I95.1 Orthostatic hypotension; R42 Dizziness and giddiness; I89.0 Lymphedema, not elsewhere classified; Z87.891 Personal history of nicotine dependence
CPT/HCPCS: 73560; 80048; 85027; 86077; 86850; 86870; 86900; 86901; 86902; 86920; 86922; 93971; 94150; C1776; C9290; J0690; J1100; J1580; J1650; J2250; J2270; J2370; J2405; J2795; J3010; J3370; J7030; J7040; J7050; J7120; L1830

== ENCOUNTER → 2016-08-08 | Outpatient (CLI) | payer MEDICARE ==
[~2016-08-08] MED LIST: ASPI325T PO; BUPR1TAB70 PO; BUTA1CAP PO; CARA1TAB6 PO; CELE20TA PO; COMMODE 3-IN-11 MIS; CPMMACHINE; DIVA500T3 PO; ENOX40P SQ; HYDR-3133 PO; IMIT100T PO; IMIT50TA PO; LEVA500T33 PO; LORT5TAB PO; MELO-1 PO; NEXI20CA PO; NEXI40CA PO; NORC5TAB PO; PANT20 PO; RIZA10TA2 PO; WALKER WHEELS/F1 MIS; ZOFR4TAB PO
[2016-08-08 09:20] LABS: BLOOD, URINE TRACE (NEG); COMMENT (UR) CULT NOT INDICATED; CULTURE IF INDICATED CULT NOT INDICATED; GLUCOSE,URINE NEG (NEG); KETONE, URINE NEG (NEG); NITRITE,URINE NEG (NEG); SQUAMOUS EPITHELIAL CELL URINE <1 /hpf (0-5); URINE COLOR LIGHT-YELLOW (YELLW/STRAW)
[2016-08-08 09:25] LABS: AUTOMATED NEUTROPHIL # 2.3 TH/MM3 (1.8-7.7); BASOPHIL % 0.8 % (0.0-2.0); EOSINOPHIL # 0.1 TH/MM3 (0-0.4); HEMATOCRIT 37.6 % (35.0-46.0); HEMO FLAGS DIFF FINAL; LYMPHOCYTE # 1.4 TH/MM3 (1.0-4.8); MEAN CELL VOLUME 91.5 FL (80.0-100.0); MEAN CORPUSCULAR HEMOGLOBIN 30.9 PG (27.0-34.0); MEAN CORPUSCULAR HGB CONC 33.7 % (32.0-36.0); MONO % 14.4 % (0.0-8.0); NEUT % 50.8 % (16.0-70.0); PLATELET COUNT 232 TH/MM3 (150-450); RED BLOOD COUNT 4.11 MIL/MM3 (4.00-5.30); RED CELL DISTRIBUTION WIDTH 13.8 % (11.6-17.2); WHITE BLOOD COUNT 4.4 TH/MM3 (4.0-11.0)
[2016-08-08 09:42] LABS: APTT (PATIENT) 27.5 SEC (24.3-30.1); INTERNATIONAL NORMALIZED RATIO 0.9 RATIO; PROTHROMBIN TIME - PATIENT 10.4 SEC (9.8-11.6)
[2016-08-08 09:54] LABS: ALKALINE PHOSPHATASE 71 U/L (45-117); ALT (GPT) 20 U/L (10-53); ANION GAP 6 MEQ/L (5-15); AST (GOT) 9 U/L (15-37); BLOOD UREA NITROGEN 14 MG/DL (7-18); CHLORIDE 103 MEQ/L (98-107); GLOMERULAR FILTRATION RATE 92 ML/MIN (>89); GLUCOSE,FASTING 90 MG/DL (74-99); POTASSIUM 3.9 MEQ/L (3.5-5.1); SODIUM (NA) 139 MEQ/L (136-145); TOTAL BILIRUBIN ADULT 0.3 MG/DL (0.2-1.0)
[2016-08-08 09:57] LABS: WESTERGREN SEDIMENTATION RATE 6 mm/hr (0-30)
--- NOTE | 2016-08-08 09:57 | EKG ---
Date Performed: 08/08/2016 Time Performed: 09:12:29 PTAGE: 70 years EKG: Sinus rhythm SEPTAL MYOCARDIAL INFARCTION, OF INDETERMINATE AGE NONSPECIFIC ST/T ABNORMALITIES ABNORMAL ECG NO PREVIOUS TRACING DOCTOR: Conor Toth Interpretating Date/Time 08/08/2016 09:56:00
--- NOTE | 2016-08-08 12:32 | RADRPT ---
EXAM DATE/TIME: 08/08/2016 11:51 [facility] COMPARISON: No previous studies available for comparison. INDICATIONS : Evaluate for pneumonia,pneumothorax and communicable diseases. Pre-op knee surgery MEDICAL HISTORY : None. SURGICAL HISTORY : None. ENCOUNTER: Initial ACUITY: 1 day PAIN SCORE: 0/10 LOCATION: chest FINDINGS: PA and lateral views of the chest demonstrate the lungs to be symmetrically aerated without evidence of mass, infiltrate or effusion. The cardiomediastinal contours are unremarkable. Osseous structure s are intact minimal nature marginal spurring the lower thoracic spine. CONCLUSION: No acute disease. Johan Valdez MD on August 08, 2016 at 12:30 Board Certified Radiologist. This report was verified electronically.
== END ==
LOC: CPRE 08:43
PROVIDERS: ATTEND Orthopaedic Surgery
DX: Z01.810 Encounter for preprocedural cardiovascular examination (principal); Z01.811 Encounter for preprocedural respiratory examination; Z01.812 Encounter for preprocedural laboratory examination; Z96.60 Presence of unspecified orthopedic joint implant; M17.12 Unilateral primary osteoarthritis, left knee; M79.609 Pain in unspecified limb
CPT/HCPCS: 36415; 71020; 80053; 81001; 85025; 85610; 85652; 85730; 93005

== ENCOUNTER 2016-12-08 17:29 | Emergency (ER) | payer MEDICARE ==
[~2016-12-08] VITALS: Ht 157.5 cm; Wt 61.5 kg
[~2016-12-08 17:29] MED LIST changes: -CARA1TAB6 PO; -CELE20TA PO; -LEVA500T33 PO; -LORT5TAB PO; -MELO-1 PO; -NEXI40CA PO; -PANT20 PO
[2016-12-08 17:31] VITALS: BP 155/81; PULSE 81; RESP 14; TEMP 98.6; O2SAT 100
--- NOTE | 2016-12-08 17:36 | PD ---
Physical Exam Time Seen by Provider: 17:35 Narrative 71yo F c/o epigastric pain/pressure on and off for the past few days with worsening today. +N w/o V. Denies diarrhea, fever. GI cannot see until January. Patient seen in triage. VS reviewed. Awaiting bed placement. Data Data Last Documented VS Vital Signs Date Time Temp Pulse Resp B/P Pulse Ox O2 Delivery O2 Flow Rate FiO2 12/08/16 17:31 98.6 81 14 155/81 100 MDM Supervised Visit with CLARENCE: Doris Thurston Dec 08, 2016 17:36
--- NOTE | 2016-12-08 18:31 | PD ---
HPI Chief Complaint: GI Complaint Time Seen by Provider: 18:12 Travel History International Travel<30 days: No Contact w/Intl Traveler<30days: No Traveled to known affect area: No History of Present Illness HPI 71-year-old female complains of epigastric abdominal pain. Patient states that she has intermittent epigastric abdominal pain for the past week. Patient states the pain is aching pain pressure pain with radiation to the back. Patient states that she has nausea but no vomiting or diarrhea. Patient states the pain is worse with eating. Patient denies any chest pain or shortness of breath. Patient states that her left arm was aching once for the past week. Patient denies any history of CAD. Patient has history of GERD, hiatal hernia. Patient was a patient of Dr. Parham in the past. Patient awaiting appointment with GI specialist. Patient denies history hypertension, diabetes. Patient has history of hyperlipidemia. Patient is a nonsmoker. Patient denies family history heart disease. Patient states that she tried Nexium and Zantac without much relief of the pain. PFSH Past Medical History Arthritis: Yes Asthma: No Anxiety: Yes Depression: Yes Cancer: Yes (CERVICAL) Cardiovascular Problems: No Chemotherapy: No COPD: No Cerebrovascular Accident: No Diabetes: No Diminished Hearing: No Endocrine: No Gastrointestinal Disorders: Yes (REFLUX) GERD: Yes Genitourinary: Yes (UTI) Headaches: Yes Hepatitis: No Hiatal Hernia: Yes Immune Disorder: No Medical other: Yes (LYMPH EDEMA BILATERAL LOWER EXTREMITIES) Musculoskeletal: Yes (OA, RIGHT TORN MINISCUS ) Neurologic: Yes (MIGRAINES) Psychiatric: Yes (DEPRESSION AND ANXIETY) Reproductive: Yes Respiratory: No Migraines: Yes Radiation Therapy: No Thyroid Disease: No Tetanus Vaccination: > 5 Years Influenza Vaccination: No Past Surgical History Abdominal Surgery: No AICD: No Body Medical Devices: RIGHT EYE PROSTHESIS Cardiac Surgery: No Ear Surgery: Yes (right prosthetic eye) Endocrine Surgery: No Eye Surgery: No Genitourinary Surgery: No Gynecologic Surgery: Yes (HYSTERECTOMY) Hysterectomy: Yes Joint Replacement: Yes (left knee) Oral Surgery: No Pacemaker: No Thoracic Surgery: No Other Surgery: Yes Social History Alcohol Use: Yes (RARELY) Tobacco Use: No Substance Use: No Allergies-Medications (Allergen,Severity, Reaction): Coded Allergies: Sulfa (Verified Allergy, Mild, Hives, 12/08/16) Uncoded Allergies: FLU SHOT (Allergy, Unknown, Hives, 05/31/03) Reported Meds & Prescriptions Reported Meds & Active Scripts Active Zofran (Ondansetron HCl) 4 Mg Tab 4 Mg PO Q6HR PRN Walker with Front Wheels (Device) 1 Mis Mis 1 Ea .ROUTE DIRECTED CPM-Continuous Passive Motion Machine 1 Ea Device 1 Ea .ROUTE DIRECTED Commode 3-in-1 (Device) 1 Mis Mis 1 Ea .ROUTE DIRECTED [place] (Hydrocodone-Acetaminophen) 5-325 mg Tab 1-2 Tab PO Q4H PRN Aspirin 325 Mg Tab 325 Mg PO DAILY Start Aspirin after Lovenox is completed. Lovenox Inj (Enoxaparin Sodium) 40 Mg/0.4 Ml Syr 40 Mg SQ DAILY Start Aspirin after Lovenox is completed. Reported Imitrex (Sumatriptan Succinate) 50 Mg Tab 50 Mg PO ONCE PRN If a satisfactory response has not been obtained at 2 hours, a second dose may be administered Imitrex (Sumatriptan Succinate) 100 Mg Tab 100 Mg PO ONCE PRN If a satisfactory response has not been obtained at 2 hours, a second dose may be administered Rizatriptan (Rizatriptan Benzoate) 10 Mg Tab Mg PO DAILY Nexium (Esomeprazole DR) 20 Mg Capdr 20 Mg PO DAILY Hydroxyzine HCl 25 Mg Tab 25 Mg PO TID PRN Divalproex ER (Divalproex Sodium) 500 Mg Tab 500 Mg PO BID Bupropion HCl ER 12 HR (Bupropion HCl) 100 Mg Tab 100 Mg PO Q12HR Fioricet (Kxfpelarel-Znaqqqiqbskoo-Sxoesiyh) 50-300-40 Mg Cap 1 Cap PO Q4H PRN Review of Systems General / Constitutional: No: Fever Eyes: No: Visual changes HENT: No: Headaches Cardiovascular: No: Chest Pain or Discomfort Respiratory: No: Shortness of Breath Gastrointestinal: Positive: Nausea, Abdominal Pain Genitourinary: No: Dysuria Musculoskeletal: No: Pain Skin: No Rash Neurologic: No: Weakness Psychiatric: No: Depression Endocrine: No: Polydipsia Hematologic/Lymphatic: No: Easy Bruising Physical Exam Narrative GENERAL: Well-nourished, well-developed patient. SKIN: Focused skin assessment warm/dry. HEAD: Normocephalic. EYES: No scleral icterus. No injection or drainage. NECK: Supple, trachea midline. No JVD or lymphadenopathy. CARDIOVASCULAR: Regular rate and rhythm without murmurs, gallops, or rubs. RESPIRATORY: Breath sounds equal bilaterally. No accessory muscle use. GASTROINTESTINAL: Abdomen soft, nondistended. Patient has mild tenderness on palpation epigastric area. No rebound tenderness. No mass. MUSCULOSKELETAL: No cyanosis, or edema. BACK: Nontender without obvious deformity. No CVA tenderness. Neurologic exam normal. Data Data Last Documented VS Vital Signs Date Time Temp Pulse Resp B/P Pulse Ox O2 Delivery O2 Flow Rate FiO2 12/08/16 19:08 97 Room Air 12/08/16 17:31 98.6 81 14 155/81 Orders Electrocardiogram (12/08/16 18:18) Complete Blood Count With Diff (12/08/16 18:18) Comprehensive Metabolic Panel (12/08/16 18:18) Creatine Kinase (Cpk) (12/08/16 18:18) Troponin I (12/08/16 18:18) Prothrombin Time / Inr (Pt) (12/08/16 18:18) Act Partial Throm Time (Ptt) (12/08/16 18:18) Lipase (12/08/16 18:18) Urinalysis - C+S If Indicated (12/08/16 18:18) Chest, Single Ap (12/08/16 18:18) Ct Abd/Pel W Iv Contrast(Rout) (12/08/16 18:18) Iv Access Insert/Monitor (12/08/16 18:18) Ecg Monitoring (12/08/16 18:18) Oximetry (12/08/16 18:18) Pantoprazole Inj (Protonix Inj) (12/08/16 19:00) Al-Mag Hy-Si 40-40-4 Mg/Ml Liq (Mag-Al P (12/08/16 19:00) Cbwhl-Rezdwl-Xqhdvg-Pb Liq ( Liq (12/08/16 19:00) Iohexol 350 Inj (Omnipaque 350 Inj) (12/08/16 20:31) Labs Laboratory Tests Test 12/08/16 12/08/16 18:25 18:40 White Blood Count 6.0 TH/MM3 Red Blood Count 4.54 MIL/MM3 Hemoglobin 13.5 GM/DL Hematocrit 40.0 % Mean Corpuscular Volume 88.0 FL Mean Corpuscular Hemoglobin 29.8 PG Mean Corpuscular Hemoglobin 33.8 % Concent Red Cell Distribution Width 14.1 % Platelet Count 248 TH/MM3 Mean Platelet Volume 7.4 FL Neutrophils (%) (Auto) 58.4 % Lymphocytes (%) (Auto) 25.2 % Monocytes (%) (Auto) 14.9 % Eosinophils (%) (Auto) 1.0 % Basophils (%) (Auto) 0.5 % Neutrophils # (Auto) 3.5 TH/MM3 Lymphocytes # (Auto) 1.5 TH/MM3 Monocytes # (Auto) 0.9 TH/MM3 Eosinophils # (Auto) 0.1 TH/MM3 Basophils # (Auto) 0.0 TH/MM3 CBC Comment DIFF FINAL Differential Comment Prothrombin Time 10.2 SEC Prothromb Time International 0.9 RATIO Ratio Activated Partial 27.2 SEC Thromboplast Time Sodium Level 134 MEQ/L Potassium Level 3.5 MEQ/L Chloride Level 99 MEQ/L Carbon Dioxide Level 24.9 MEQ/L Anion Gap 10 MEQ/L Blood Urea Nitrogen 14 MG/DL Creatinine 0.56 MG/DL Estimat Glomerular Filtration 107 ML/MIN Rate Random Glucose 92 MG/DL Calcium Level 8.8 MG/DL Total Bilirubin 0.3 MG/DL Aspartate Amino Transf 11 U/L (AST/SGOT) Alanine Aminotransferase 20 U/L (ALT/SGPT) Alkaline Phosphatase 66 U/L Total Creatine Kinase 41 U/L Troponin I LESS THAN 0.02 NG/ML Total Protein 6.8 GM/DL Albumin 3.5 GM/DL Lipase 142 U/L Urine Color LIGHT-YELLOW Urine Turbidity CLEAR Urine pH 5.0 Urine Specific [place] 1.007 Urine Protein NEG mg/dL Urine Glucose (UA) NEG mg/dL Urine Ketones NEG mg/dL Urine Occult Blood SMALL Urine Nitrite NEG Urine Bilirubin NEG Urine Urobilinogen LESS THAN 2.0 MG/DL Urine Leukocyte Esterase NEG Urine RBC 1 /hpf Microscopic Urinalysis Comment CULT NOT INDICATED MDM Medical Decision Making Medical Screen Exam Complete: Yes Emergency Medical Condition: Yes Interpretation(s) 2046 PM. CBC within normal limit. CMP within normal limit. Cardiac enzymes are normal. UA is negative. Chest x-ray shows no acute disease. Differential Diagnosis Differential diagnosis including gastritis, PUD, pancreatitis, cholecystitis, colitis, UTI, pyelonephritis, angina, DE, PE, pneumothorax. Narrative Course 71-year-old female with epigastric abdominal pain. Diagnosis Primary Impression: Gastritis Qualified Code: K29.00 - Acute gastritis without hemorrhage, unspecified gastritis type Patient Instructions: General Instructions Additional Instructions: Take medications as directed. Follow-up with personal physician and GI specialist. Return if persistent problem or worse. Med/Other Pt SpecificInfo: Prescription(s) given Scripts Sucralfate (Carafate)1 Gm Tab1 Gm PO QID #120 TAB Ref 0 On empty stomach Prov:Juventino Childers MD 12/08/16 Pantoprazole (Protonix)20 Mg Tab20 Mg PO DAILY #30 TAB Prov:Juventino Childers MD 12/08/16 Disposition: 01 DISCHARGE HOME Condition: Stable Juventino Childers MD Dec 08, 2016 18:31
--- NOTE | 2016-12-08 18:59 | RADRPT ---
EXAM DATE/TIME: 12/08/2016 18:46 [facility] COMPARISON: CHEST PA & LAT, August 08, 2016, 11:51. INDICATIONS : Chest tightness and nausea. MEDICAL HISTORY : None. SURGICAL HISTORY : None. ENCOUNTER: Initial ACUITY: 2 weeks PAIN SCORE: 0/10 LOCATION: Bilateral chest FINDINGS: A single view of the chest demonstrates the lungs to be symmetrically aerated without evidence of mas s, infiltrate or effusion. Small stable calcified granuloma within the right upper lobe. The cardiom ediastinal contours are unremarkable. Osseous structures are intact. CONCLUSION: No acute disease. Silverio Schwartz Jr., MD on December 08, 2016 at 18:56 Board Certified Radiologist. This report was verified electronically.
[2016-12-08] MEDS ORDERED: ATROPINE/SCOPOLAM/HYOSCYAM/PB ELIXIR 10 ML CUP PO ONE (19:00)
[2016-12-08] MEDS ORDERED: PANTOPRAZOLE SODIUM 40 MG VIAL IV PUSH ONE (19:00)
[2016-12-08] MEDS ORDERED: ALUMINUM/MAGNESIUM/SIMETH 30 ML CUP PO ONE (19:00)
[2016-12-08 19:06] LABS: BLOOD, URINE SMALL (NEG); GLUCOSE,URINE NEG (NEG); KETONE, URINE NEG (NEG); NITRITE,URINE NEG (NEG); URINE COLOR LIGHT-YELLOW (YELLW/STRAW)
[2016-12-08 19:08] VITALS: O2SAT 97
[2016-12-08 19:15] LABS: AUTOMATED NEUTROPHIL # 3.5 TH/MM3 (1.8-7.7); BASOPHIL % 0.5 % (0.0-2.0); EOSINOPHIL # 0.1 TH/MM3 (0-0.4); HEMO FLAGS DIFF FINAL; LYMPH % 25.2 % (9.0-44.0); LYMPHOCYTE # 1.5 TH/MM3 (1.0-4.8); MEAN CORPUSCULAR HEMOGLOBIN 29.8 PG (27.0-34.0); MEAN CORPUSCULAR HGB CONC 33.8 % (32.0-36.0); MONO % 14.9 % (0.0-8.0); NEUT % 58.4 % (16.0-70.0); PLATELET COUNT 248 TH/MM3 (150-450); RED BLOOD COUNT 4.54 MIL/MM3 (4.00-5.30); RED CELL DISTRIBUTION WIDTH 14.1 % (11.6-17.2)
[2016-12-08 19:18] LABS: COMMENT (UR) CULT NOT INDICATED; CULTURE IF INDICATED CULT NOT INDICATED
[2016-12-08 19:23] LABS: APTT (PATIENT) 27.2 SEC (24.3-30.1); INTERNATIONAL NORMALIZED RATIO 0.9 RATIO; PROTHROMBIN TIME - PATIENT 10.2 SEC (9.8-11.6)
[2016-12-08 19:57] LABS: ALT (GPT) 20 U/L (10-53); ANION GAP 10 MEQ/L (5-15); BICARBONATE 24.9 MEQ/L (21.0-32.0); BLOOD UREA NITROGEN 14 MG/DL (7-18); CHLORIDE 99 MEQ/L (98-107); POTASSIUM 3.5 MEQ/L (3.5-5.1); SODIUM (NA) 134 MEQ/L (136-145)
[2016-12-08 19:59] LABS: AST (GOT) 11 U/L (15-37); GLOMERULAR FILTRATION RATE 107 ML/MIN (>89); TOTAL BILIRUBIN ADULT 0.3 MG/DL (0.2-1.0)
[2016-12-08 20:02] LABS: ALKALINE PHOSPHATASE 66 U/L (45-117)
[2016-12-08 20:03] LABS: CREATINE KINASE 41 U/L (26-192)
[2016-12-08] MEDS ORDERED: IOHEXOL 350 MG/ML 10 ML VIAL (for RAD DIAG) IV ONE (20:31)
--- NOTE | 2016-12-08 20:45 | RADRPT ---
EXAM DATE/TIME: 12/08/2016 20:21 [facility] COMPARISON: No previous studies available for comparison. INDICATIONS : Epigastric abdominal pain. IV CONTRAST: 100 cc Omnipaque 350 (iohexol) IV ORAL CONTRAST: No oral contrast ingested. RADIATION DOSE: 13.03 CTDIvol (mGy) MEDICAL HISTORY : Carcinoma, not otherwise specified. SURGICAL HISTORY : None. ENCOUNTER: Initial ACUITY: 1 day PAIN SCALE: 8/10 LOCATION: epigastric abdomen TECHNIQUE: Volumetric scanning of the abdomen and pelvis was performed. Using automated exposure control and ad justment of the mA and/or kV according to patient size, radiation dose was kept as low as reasonably achievable to obtain optimal diagnostic quality images. FINDINGS: LOWER LUNGS: The visualized lower lungs are clear. LIVER: Homogeneous density without lesion. There is no dilation of the biliary tree. No calcified gallston es. SPLEEN: Normal size without lesion. PANCREAS: Within normal limits. KIDNEYS: Normal in size and shape. There is no mass, stone or hydronephrosis. ADRENAL GLANDS: Within normal limits. VASCULAR: There is no aortic aneurysm. BOWEL/MESENTERY: The stomach, small bowel, and colon demonstrate no acute abnormality. There is no free intraperitone al air or fluid. ABDOMINAL WALL: Within normal limits. RETROPERITONEUM: There is no lymphadenopathy. BLADDER: No wall thickening or mass. REPRODUCTIVE: Within normal limits. INGUINAL: There is no lymphadenopathy or hernia. MUSCULOSKELETAL: Within normal limits for patient age. CONCLUSION: Normal examination. Silverio Schwartz Jr., MD on December 08, 2016 at 20:41 Board Certified Radiologist. This report was verified electronically.
[2016-12-08] MEDS ORDERED: CARA1TAB6 PO (20:53)
[2016-12-08] MEDS ORDERED: PANT20 PO (20:53)
--- NOTE | 2016-12-09 12:22 | EKG ---
Date Performed: 12/08/2016 Time Performed: 18:38:41 PTAGE: 71 years EKG: Sinus rhythm SEPTAL MYOCARDIAL INFARCTION ABNORMAL ECG Compared to prior tracing no significant change PREVIOUS TRACING : 08/08/2016 09.12 DOCTOR: Bandar Angelo Interpretating Date/Time 12/09/2016 12:19:36
== END 2016-12-08 21:48 | disposition home or self-care (01) ==
LOC: NEPD 17:29
DX: K29.00 Acute gastritis without bleeding (principal); M79.602 Pain in left arm; R94.31 Abnormal electrocardiogram [ECG] [EKG]; E78.5 Hyperlipidemia, unspecified; Z87.39 Personal history of other diseases of the musculoskeletal system and connective tissue; Z86.59 Personal history of other mental and behavioral disorders; Z87.19 Personal history of other diseases of the digestive system; Z87.448 Personal history of other diseases of urinary system; Z86.69 Personal history of other diseases of the nervous system and sense organs
CPT/HCPCS: 71010; 74177; 80053; 81001; 82550; 83690; 84484; 85025; 85610; 85730; 93005; 96374; 99285; C9113; Q9967